=== PATIENT | male | born 1970 | race Caucasian/White ===

== ENCOUNTER 2021-05-22 00:57 | Emergency (ER) | payer BC ==
[2021-05-22 01:53] LABS: RED BLOOD COUNT 4.55 M/UL (4.20-5.50); WHITE BLOOD COUNT 5.9 K/UL (4.5-11.0)
[2021-05-22 02:04] LABS: BUN/CREATININE RATIO 9 (0-10)
== END 2021-05-22 05:50 | disposition home or self-care (01) ==
LOC: ER1 00:57
PROVIDERS: Physician Assistant
DX: U07.1 COVID-19 (principal); Q79.4 Prune belly syndrome
CPT/HCPCS: 0240U; 70360; 70491; 71045; 80048; 85025; 87081; 87880; 96374; 96375; 99284; J2060; J2270; J2405; Q9967